=== PATIENT | female | born 1980 | race American Indian/Alaskan Native ===

== ENCOUNTER 2021-02-27 23:27 | Emergency (ER) | payer OTHER ==
[2021-02-28] MEDS ORDERED: IBUPROFEN 600 MG TAB PO ONE (00:45)
[2021-02-28] MEDS ORDERED: ACETAMINOPHEN 500 MG TAB PO ONE (00:45)
[2021-02-28 00:50] VITALS: BP 150/97
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
== END 2021-02-28 03:20 | disposition home or self-care (01) ==
LOC: ED 23:27
DX: S16.1XXA Strain of muscle, fascia and tendon at neck level, initial encounter (principal); M62.838 Other muscle spasm; M62.830 Muscle spasm of back; Z79.899 Other long term (current) drug therapy; V49.49XA Driver injured in collision with other motor vehicles in traffic accident, initial encounter; Y92.410 Unspecified street and highway as the place of occurrence of the external cause; Y93.89 Activity, other specified; Y99.8 Other external cause status
CPT/HCPCS: 72125